=== PATIENT | male | born 1990 | race Caucasian/White ===

== ENCOUNTER 2017-01-16 13:14 | Emergency (ER) | payer SELFPAY ==
[2017-01-16 13:30] VITALS: BP 132/72
[2017-01-16] MEDS ORDERED: Acetaminophen/oxyCODONE 325-5 MG Tab PO ONE (14:21)
--- NOTE | 2017-01-16 14:28 | EDM.PDOC ---
ED HPI GENERAL MEDICAL PROBLEM - General Chief Complaint: ENT Problem Stated Complaint: TOOTH PAIN Time Seen by Provider: 01/16/17 14:02 Source of Information: Reports: Patient History Limitations: Reports: No Limitations - History of Present Illness INITIAL COMMENTS - FREE TEXT/NARRATIVE: 26 year old male presents for evaluation and treatment of tooth pain. Reports pain is in the right upper molar. States the pain has been present for several months and is steadily worsening. Report the tooth is broken. Saw dental about one month ago. Recommended having the tooth pulled, however, he does not have insurance and cannot afford to have the tooth pulled at this time. He was started on amoxicillin by dental but had to stop taking the amoxicillin due to developing a rash. Reports pain from the right upper molar extending to his right ear, head and neck. Denies any fevers, chills, nausea or vomiting. Right Upper Oral/Mouth Pain Score (Numeric/FACES): 6 - Related Data Allergies Allergy/AdvReac Type Severity Reaction Status Date / Time amoxicillin Allergy Rash Verified 01/16/17 13:31 Home Meds: Home Meds Acetaminophen/oxyCODONE [Percocet 325-5 MG] 1 tab PO Q6H PRN #12 tablet [Rx] Clindamycin HCl [Cleocin HCl] 300 mg PO Q6HR #40 capsule 01/16/17 [Rx] Past Medical History - Past Health History Medical/Surgical History: Denies Medical/Surgical History Social & Family History - Tobacco Use Smoking Status *Q: Former Smoker Years of Tobacco use: 5 Used Tobacco, but Quit: Yes Month Tobacco Last Used: August - Caffeine Use Caffeine Use: Reports: None - Alcohol Use Days Per Week of Alcohol Use: 0 - Recreational Drug Use Recreational Drug Use: No ED ROS ENT - Review of Systems Review Of Systems: See Below Constitutional: Denies: Fever, Chills HEENT: Reports: Dental Pain (right upper molar) GI/Abdominal: Denies: Nausea, Vomiting Musculoskeletal: Reports: Neck Pain Neurological: Reports: Headache ED EXAM, ENT - Physical Exam Exam: See Below Exam Limited By: No Limitations General Appearance: Alert, WD/WN, No Apparent Distress Eye Exam: Bilateral Eye: Normal Inspection, PERRL Ears: Normal External Exam, Normal Canal, Hearing Grossly Normal, Normal TMs Nose: Normal Inspection Mouth/Throat: Normal Inspection, Normal Gums, Normal Lips, Normal Oropharynx, Dental Abcess (#1), Dental Pain (#1), Dental Trauma (#1 broken), Gum Swelling Neck: Normal Inspection. No: Lymphadenopathy (L), Lymphadenopathy (R) Respiratory/Chest: No Respiratory Distress, Lungs Clear, Normal Breath Sounds Cardiovascular: Normal Peripheral Pulses, Regular Rate, Rhythm Neurological: Alert, Oriented, Normal Cognition Psychiatric: Normal Affect, Normal Mood Skin: Warm, Dry, Normal Color Course - Vital Signs Last Recorded V/S: Last Vital Signs Temp 36.8 C 01/16/17 13:25 Pulse 82 01/16/17 13:25 Resp 16 01/16/17 13:25 BP 132/72 01/16/17 13:25 Pulse Ox 99 01/16/17 13:25 - Orders/Labs/Meds Meds: Medications Discontinued Medications Generic Name Dose Route Start Last Admin Trade Name Freq PRN Reason Stop Dose Admin Oxycodone/Acetaminophen 1 tab 01/16/17 14:21 01/16/17 14:25 Percocet 325-5 Mg PO 01/16/17 14:22 1 tab ONETIME ONE Administration Departure - Departure Time of Disposition: 14:22 Disposition: Home, Self-Care 01 Condition: Fair Clinical Impression: Dental abscess, Pain, dental - Discharge Information Prescriptions: Clindamycin HCl [Cleocin HCl] 300 mg PO Q6HR #40 capsule Acetaminophen/oxyCODONE [Percocet 325-5 MG] 1 tab PO Q6H PRN #12 tablet PRN Reason: Pain Instructions: Dental Abscess Referrals: PCP,None [Primary Care Provider] - Forms: ED Department Discharge Additional Instructions: You were given medication in the ER that can affect your ability to drive and operate machinery. Do not drive or operate machinery within 12 hours of taking narcotic pain medication. Clindamycin 1 tab PO every 6 hours x 10 days. Take with food. Take yogurt or a probiotic while you take this medication. OTC clove oil for additional pain relief. [id number] ibuprofen 600 mg every 6 hours for pain. percocet 1 tab PO every 4-6 hours prn severe pain. Do not drive or operate machinery within 12 hours of taking narcotic pain medication. Percocet can be habit forming, I recommend you take as few of these as needed to control your pain. Follow-up with [facility] in [place]. Please call [phone]. They may be able to have a more affordable option for your dental care. Please return to the ER if your symptoms change or worsen.
== END 2017-01-16 14:30 | disposition home or self-care (01) ==
LOC: JD.ED 13:14
DX: K04.7 Periapical abscess without sinus (principal); Z88.1 Allergy status to other antibiotic agents; Z87.891 Personal history of nicotine dependence
CPT/HCPCS: 99283; A9270

== ENCOUNTER 2017-01-22 22:02 | Emergency (ER) | payer SELFPAY ==
[2017-01-22 22:29] VITALS: BP 136/76
[2017-01-22] MEDS ORDERED: Ibuprofen 800 MG Tab PO ONE (23:39)
[2017-01-22] MEDS ORDERED: Acetaminophen/HYDROcodone 325-5 MG Tab PO ONE (23:39)
--- NOTE | 2017-01-22 23:40 | EDM.PDOC ---
[id number] PAIN Time Seen by Provider: 01/22/17 22:49 Source of Information: Reports: Patient History Limitations: Reports: No Limitations - History of Present Illness INITIAL COMMENTS - FREE TEXT/NARRATIVE: 26-year-old male presents with dental pain. He states that he's been having trouble with her right upper molar for a long time. Has not been able to see a dentist for financial reasons. Was seen here about 5 days ago and prescribed clindamycin and Percocet and advised to follow-up with dental. Returns because he is out of Percocet. States that the Percocet was not really helping his pain. He is also taking Tylenol for pain. He has not tried any other medications. Still taking the Clinda. Does not have a dental appointment and did not call as advised. No fever. No facial swelling. No gumline swelling. Right Upper Tooth/Teeth Pain Score (Numeric/FACES): 10 - Related Data Allergies Allergy/AdvReac Type Severity Reaction Status Date / Time amoxicillin Allergy Rash Verified 01/16/17 13:31 Home Meds: Home Meds Acetaminophen/oxyCODONE [Percocet 325-5 MG] 1 tab PO Q6H PRN #12 tablet [Rx] Clindamycin HCl [Cleocin HCl] 300 mg PO Q6HR #40 capsule 01/16/17 [Rx] Hydrocodone/Acetaminophen [Purcell 5-325] 1 tab PO QID PRN #10 tablet 01/22/17 [Rx ] Ibuprofen [IJD: Ibuprofen] 800 mg PO TID PRN #30 tab 01/22/17 [Rx] Past Medical History - Past Health History Medical/Surgical History: Denies Medical/Surgical History HEENT History: Reports: Other (See Below) Other HEENT History: dental issues Musculoskeletal History: Reports: Other (See Below) Other Musculoskeletal History: right elbow with screws Social & Family History - Tobacco Use Smoking Status *Q: Never Smoker Years of Tobacco use: 5 Used Tobacco, but Quit: Yes Month Tobacco Last Used: August - Caffeine Use Caffeine Use: Reports: Coffee, Energy Drinks, Soda - Alcohol Use Days Per Week of Alcohol Use: 0 - Recreational Drug Use Recreational Drug Use: No ED ROS ENT - Review of Systems Review Of Systems: See Below Constitutional: Denies: Fever HEENT: Denies: Throat Pain Respiratory: Reports: No Symptoms Musculoskeletal: Denies: Neck Pain ED EXAM, ENT - Physical Exam Exam: See Below Exam Limited By: No Limitations General Appearance: Alert, WD/WN, No Apparent Distress Eye Exam: Bilateral Eye: Normal Inspection Nose: Normal Inspection Mouth/Throat: Other (Right upper posterior molar is cracked. There is no gumline swelling.) Head: Atraumatic, Normocephalic Neck: Normal Inspection, Supple, Non-Tender, Full Range of Motion Respiratory/Chest: No Respiratory Distress Course - Vital Signs Last Recorded V/S: Last Vital Signs Temp 37.2 C 01/22/17 22:26 Pulse 71 01/22/17 22:26 Resp 20 01/22/17 22:26 BP 136/76 01/22/17 22:26 Pulse Ox 96 01/22/17 22:26 - Orders/Labs/Meds Meds: Medications Discontinued Medications Generic Name Dose Route Start Last Admin Trade Name Freq PRN Reason Stop Dose Admin Hydrocodone Bitart/Acetaminophen 1 tab 01/22/17 23:39 01/22/17 23:44 Purcell 325-5 Mg PO 01/22/17 23:40 1 tab ONETIME ONE Administration Ibuprofen 800 mg 01/22/17 23:39 01/22/17 23:44 Motrin PO 01/22/17 23:40 800 mg ONETIME ONE Administration - Re-Assessments/Exams Free Text/Narrative Re-Assessment/Exam: 01/23/17 01:07 No evidence of dental or facial infection. Discussed tooth pain management at length and recommended ibuprofen and Tylenol as first line, agreed to provide another small prescription for Purcell but it reminded patient did this is not a long-term solution to his dental problems. Departure - Departure Time of Disposition: 00:30 Disposition: Home, Self-Care 01 Clinical Impression: Dental caries extending into dentin Fracture of tooth Qualifiers: Encounter type: subsequent encounter Fracture type: closed Fracture healing: with routine healing Qualified Code(s): S02.5XXD - Fracture of tooth (traumatic) , subsequent encounter for fracture with routine healing - Discharge Information Prescriptions: Hydrocodone/Acetaminophen [Purcell 5-325] 1 tab PO QID PRN #10 tablet PRN Reason: Pain Ibuprofen [IJD: Ibuprofen] 800 mg PO TID PRN #30 tab PRN Reason: Pain Referrals: PCP,None [Primary Care Provider] - Forms: ED Department Discharge Additional Instructions: 1. Take ibuprofen as prescribed for pain 2. Take norco (hydrocodone) as prescribed for severe pain. Take the smallest amount of this medication that can control your pain. 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 3. Follow up with a dentist as soon as possible for further care.
== END 2017-01-23 00:10 | disposition home or self-care (01) ==
LOC: JD.ED 22:02
DX: K02.9 Dental caries, unspecified (principal); K03.81 Cracked tooth; Z88.1 Allergy status to other antibiotic agents
CPT/HCPCS: 99282; A9270; 99283

== ENCOUNTER 2024-03-28 20:48 | Emergency (ER) | payer MEDICAID ==
[2024-03-28 21:19] VITALS: BP 127/77; PULSE 100
[2024-03-28 21:45] LABS: BASOPHILS PERCENT AUTO 0.3 % (0.0-1.0); EOSINOPHILS ABSOLUTE AUTO 0.1 K/mm3 (0.0-0.4); EOSINOPHILS PERCENT AUTO 0.7 % (0.0-6.0); HEMATOCRIT 47.7 % (42.0-52.0); HEMOGLOBIN 15.8 gm/dl (14.0-18.0); IMMATURE GRAN ABSOLUTE AUTO 0.05 K/mm3 (0.00-0.05); IMMATURE GRAN PERCENT AUTO 0.5 % (0.0-0.4); LYMPHOCYTES ABSOLUTE AUTO 2.4 K/mm3 (1.0-4.8); LYMPHOCYTES PERCENT AUTO 25.7 % (24.0-44.0); MEAN CORPUSCULAR HEMOGLOBIN 29.7 pg (28.0-32.0); MEAN CORPUSCULAR HGB CONC 33.1 g/dl (32.0-36.0); MEAN CORPUSCULAR VOLUME 89.7 fl (83.0-99.0); MEAN PLATELET VOLUME 10.7 fl (9.4-12.4); MONOCYTES PERCENT AUTO 10.5 % (0.0-8.0); NEUTROPHILS ABSOLUTE AUTO 5.9 K/mm3 (1.8-7.7); NEUTROPHILS PERCENT AUTO 62.3 % (41.0-71.0); PLATELET COUNT,PLT 226 K/mm3 (150-400); RED BLOOD CELL COUNT 5.32 M/mm3 (4.52-5.90); WHITE BLOOD CELL COUNT,WBC 9.41 K/mm3 (3.9-11.3)
[2024-03-28] MEDS: Sodium Chloride 0.9% 1,000 ML IV SCH (21:45)
[2024-03-28 22:16] LABS: ALBUMIN 3.9 g/dl (3.4-5.0); ANION GAP 10.3 (5-15); BILIRUBIN TOTAL 0.2 mg/dL (0.2-1.0); BUN/CREATININE RATIO 11.7 (14-18); CALCIUM 9.4 mg/dL (8.5-10.1); CREATININE 1.2 mg/dL (0.7-1.3); EST CRCL DRUG DOSING (CG) 89.19 mL/min; PROTEIN TOTAL,TP 7.9 g/dl (6.4-8.2)
[2024-03-28 22:22] LABS: POTASSIUM,K 4.3 mEq/L (3.5-5.1)
[2024-03-28] MEDS: Ondansetron 4 MG Tab.DIS PO ONE (23:45)
[2024-03-28] MEDS: Acetaminophen/oxyCODONE 325-5 MG Tab PO ONE (23:45)
[2024-03-28] MEDS: Clindamycin HCl 150 MG Cap PO ONE (23:45)
== END 2024-03-29 01:05 | disposition home or self-care (01) ==
LOC: JD.ED 20:48
DX: R56.9 Unspecified convulsions (principal); K04.7 Periapical abscess without sinus; F17.210 Nicotine dependence, cigarettes, uncomplicated; Z88.0 Allergy status to penicillin
CPT/HCPCS: 36415; 70450; 70450-26; 80053; 85025; 93005; 96360; 99284-25; A9270-GY; J7030